=== PATIENT | female | born 1995 | race Caucasian/White ===

== ENCOUNTER 2016-12-25 06:01 | Emergency (ER) | payer SELFPAY ==
[~2016-12-25] VITALS: Ht 162.6 cm; Wt 62.1 kg
[~2016-12-25 06:01] MED LIST: ANAPROX DS550 M1 PO; CIPRO500 MG PO; ENDOCET 5-3251 EACH PO; IBUPROFEN800 MG PO; Motrin PO; NORCO 5/3251 TABLET PO; OXYCODONE5 MG; PERCOCET 5/31 TABLET PO; PHENERGAN12.5 M1 PO; PRENATAL TABLE1 EAC3 PO; PRENATAL VITAM1 EAC3 PO; PRILOSEC20 MG; PROMETHAZINE HC25 M1 PO; Percocet 5/325,Endoc PO; VICODIN,LORT1 TABLET PO; ZOFRAN ODT4 MG PO; ZOFRAN4 MG
[2016-12-25 06:05] VITALS: BP 141/88
[2016-12-25] MEDS ORDERED: NAPROXEN500 MG PO (06:43)
== END 2016-12-25 07:07 | disposition home or self-care (01) ==
LOC: EME 06:01
PROC: 2W3CX1Z Immobilization of Right Lower Arm using Splint (ICD-10-PCS; principal; 2016-12-25)
DX: S62.344A Nondisplaced fracture of base of fourth metacarpal bone, right hand, initial encounter for closed fracture (principal); S60.221A Contusion of right hand, initial encounter; W22.8XXA Striking against or struck by other objects, initial encounter; F17.200 Nicotine dependence, unspecified, uncomplicated
CPT/HCPCS: 73130; 99281; 99284; J1885; J3010

== ENCOUNTER 2017-08-06 11:27 | Observation (INO) | payer SELFPAY ==
[~2017-08-06] VITALS: Ht 162.6 cm; Wt 52.7 kg
[~2017-08-06 11:27] MED LIST changes: +NAPROXEN500 MG PO
[2017-08-06 13:12] LABS: HEMATOCRIT 35.9 % (36.0-46.0); HEMOGLOBIN 12.7 G/DL (11.9-15.5); MCH 29.3 PG (29.0-34.0); MCHC 35.4 G/DL (30.0-36.0); MCV 82.7 FL (83-99); PLATELET COUNT 319 K/uL (156-360); RBC DIS.WIDTH-CV 12.6 % (11.8-14.6); RBC DIS.WIDTH-SD 38.3 % (39-53); RED BLOOD COUNT 4.34 M/uL (3.80-5.20); WHITE BLOOD COUNT 10.8 K/uL (4.1-10.2)
[2017-08-06 13:21] LABS: ALBUMIN 3.7 g/dL (3.2-4.8); CHLORIDE 107 mEq/L (99-109); POTASSIUM 3.7 mEq/L (3.7-5.4); SODIUM 140 mEq/L (136-147)
[2017-08-06 13:23] LABS: GLUCOSE 102 mg/dL (70-99); TOTAL PROTEIN 6.4 g/dL (6.4-8.3)
[2017-08-06 13:25] LABS: TOTAL BILIRUBIN 0.5 mg/dL (0.0-1.0)
[2017-08-06 13:27] LABS: ALKALINE PHOSPHATASE 82 IU/L (3-129); CREATININE 0.6 mg/dL (0.6-1.3); GFR ESTIMATE (CALCULATED) > 59 mL/min/
[2017-08-06 13:28] LABS: UREA NITROGEN (BUN) 11 mg/dL (9-23)
[2017-08-06 13:29] LABS: AST (GOT) 15 IU/L (2-34)
[2017-08-06 13:30] LABS: ALT (GPT) 13 IU/L (3-49); LIPASE 24 U/L (1.0-51.0)
[2017-08-06 15:19] VITALS: BP 114/58
[2017-08-06 17:43] VITALS: BP 114/56
[2017-08-06 19:42] VITALS: BP 149/63
[2017-08-06 19:45] VITALS: BP 143/63
[2017-08-06] MEDS ORDERED: PRENATAL GUMMI1 EACH PO (19:54)
[2017-08-06 20:24] LABS: APPEARANCE CLEAR ((CLEAR)); BILIRUBIN NEGATIVE; BLOOD NEGATIVE; COLOR YELLOW ((YELLOW)); GLUCOSE (STRIP) NEGATIVE; KETONES 80; LEUKOCYTES NEGATIVE; NITRITE NEGATIVE; PROTEIN (STRIP) NEGATIVE; SPECIFIC GRAVITY 1.024 (1.000-1.030); UCUL ADDED? NO; UROBILINOGEN 0.2 MG/DL (0.2-1.0)
[2017-08-06 20:39] LABS: AMPHETAMINE NEGATIVE (500 ng/mL); BARBITURATES NEGATIVE (200 ng/mL); BENZODIAZEPINES NEGATIVE (150 ng/mL); BUPRENORPHINE NEGATIVE (10 ng/mL); COCAINE NEGATIVE (150 ng/mL); METHADONE NEGATIVE (200 ng/mL); METHAMPHETAMINE NEGATIVE (500 ng/mL); OPIATES (MORPHINE) NEGATIVE (100 ng/mL); OXYCODONE PRESUMPTIVE POSITIVE (100 ng/mL); PHENCYCLIDINE NEGATIVE (25 ng/mL); PROPOXYPHENE NEGATIVE (300 ng/mL); THC CANNABINOIDS PRESUMPTIVE POSITIVE (50 ng/mL); TRICYCLIC ANTIDEPRESSANTS NEGATIVE (300 ng/mL)
== END 2017-08-06 20:10 | disposition home or self-care (01) ==
LOC: EME 11:27 → EDOF 14:58 → 2WEST 14:58 → EDOF 15:11 → CANRESERV 15:11 → ENRESERV 15:11 → 2WEST 15:30
PROVIDERS: Emergency Medicine; Obstetrics & Gynecology Gynecology
DX: O99.612 Diseases of the digestive system complicating pregnancy, second trimester (principal); K52.9 Noninfective gastroenteritis and colitis, unspecified; Z3A.20 20 weeks gestation of pregnancy; O34.219 Maternal care for unspecified type scar from previous cesarean delivery; O09.32 Supervision of pregnancy with insufficient antenatal care, second trimester
CPT/HCPCS: 80053; 81003; 83690; 84999; 85027; 87086; 87502; 99281; 99284; G0378; J2405; J3411; J3415; J7030; J7070

== ENCOUNTER 2018-02-03 07:48 | Inpatient (IN) | payer OTHER ==
[~2018-02-03] VITALS: Ht 165.1 cm; Wt 138.0 kg
[~2018-02-03 07:48] MED LIST changes: +PRENATAL GUMMI1 EACH PO
[2018-02-03 08:35] VITALS: BP 129/66
[2018-02-03 08:37] LABS: BASOPHIL (%) 0.4 % (0-1); BASOPHIL COUNT 0.1 K/uL (0-0.1); EOSINOPHIL (%) 1.6 % (0-5); EOSINOPHIL COUNT 0.2 K/uL (0-0.3); HEMATOCRIT 31.6 % (36.0-46.0); HEMOGLOBIN 10.7 G/DL (11.9-15.5); IMMATURE GRANULOCYTE (%) 0.4 % (0.0-0.7); LYMPHOCYTE (%) 13.1 % (15-42); LYMPHOCYTE COUNT 1.8 K/uL (1.0-2.8); MCH 27.2 PG (29.0-34.0); MCHC 33.9 G/DL (30.0-36.0); MCV 80.4 FL (83-99); MONOCYTE (%) 7.1 % (3-12); NEUTROPHIL (%) 77.4 % (45-76); NEUTROPHIL COUNT 10.9 K/uL (1.8-6.4); PLATELET COUNT 254 K/uL (156-360); RBC DIS.WIDTH-CV 14.6 % (11.8-14.6); RBC DIS.WIDTH-SD 42.5 % (39-53); RED BLOOD COUNT 3.93 M/uL (3.80-5.20)
[2018-02-03 09:17] LABS: PTT 23.9 SEC (25-37)
[2018-02-03 09:19] LABS: ALBUMIN 3.2 g/dL (3.2-4.8); CHLORIDE 104 mEq/L (99-109); POTASSIUM 4.1 mEq/L (3.7-5.4); SODIUM 136 mEq/L (136-147)
[2018-02-03 09:22] LABS: GLUCOSE 86 mg/dL (70-99); TOTAL PROTEIN 5.7 g/dL (6.4-8.3)
[2018-02-03 09:24] LABS: TOTAL BILIRUBIN 0.7 mg/dL (0.0-1.0)
[2018-02-03 09:25] LABS: ALKALINE PHOSPHATASE 203 IU/L (3-129); CREATININE 0.6 mg/dL (0.6-1.3); GFR ESTIMATE (CALCULATED) > 59 mL/min/
[2018-02-03 09:26] LABS: UREA NITROGEN (BUN) 8 mg/dL (9-23)
[2018-02-03 09:27] LABS: AST (GOT) 16 IU/L (2-34)
[2018-02-03 09:28] LABS: ALT (GPT) 8 IU/L (3-49)
[2018-02-03 11:25] VITALS: BP 119/63
[2018-02-03 13:03] LABS: AMPHETAMINE NEGATIVE (500 ng/mL); BARBITURATES NEGATIVE (200 ng/mL); BENZODIAZEPINES NEGATIVE (150 ng/mL); BUPRENORPHINE NEGATIVE (10 ng/mL); COCAINE NEGATIVE (150 ng/mL); METHADONE NEGATIVE (200 ng/mL); METHAMPHETAMINE NEGATIVE (500 ng/mL); OPIATES (MORPHINE) NEGATIVE (100 ng/mL); OXYCODONE PRESUMPTIVE POSITIVE (100 ng/mL); PHENCYCLIDINE NEGATIVE (25 ng/mL); PROPOXYPHENE NEGATIVE (300 ng/mL); THC CANNABINOIDS NEGATIVE (50 ng/mL); TRICYCLIC ANTIDEPRESSANTS NEGATIVE (300 ng/mL)
[2018-02-03 14:43] VITALS: BP 132/74
[2018-02-03 15:45] VITALS: BP 131/61
[2018-02-03 17:57] VITALS: BP 122/58
[2018-02-03 22:17] VITALS: BP 139/74
[2018-02-04 05:41] LABS: BASOPHIL (%) 0.4 % (0-1); EOSINOPHIL (%) 0.5 % (0-5); EOSINOPHIL COUNT 0.1 K/uL (0-0.3); HEMATOCRIT 30.6 % (36.0-46.0); HEMOGLOBIN 10.4 G/DL (11.9-15.5); IMMATURE GRANULOCYTE (%) 0.4 % (0.0-0.7); LYMPHOCYTE (%) 17.7 % (15-42); MCH 27.8 PG (29.0-34.0); MCV 81.8 FL (83-99); MONOCYTE (%) 9.9 % (3-12); MONOCYTE COUNT 1.1 K/uL (0-0.8); NEUTROPHIL (%) 71.1 % (45-76); PLATELET COUNT 293 K/uL (156-360); RBC DIS.WIDTH-CV 14.6 % (11.8-14.6); RBC DIS.WIDTH-SD 43.3 % (39-53); RED BLOOD COUNT 3.74 M/uL (3.80-5.20); WHITE BLOOD COUNT 11.3 K/uL (4.1-10.2)
[2018-02-04 06:13] LABS: ANTI-HIV (AIDS STAT TEST) NONREACTIVE
[2018-02-04 10:58] LABS: HIV-1/2 AB/AG COMBO Nonreactive
[2018-02-04 11:03] LABS: HEPATITIS B SURFACE ANTIGEN Nonreactive
[2018-02-04 11:04] LABS: HEPATITIS C ANTIBODY Nonreactive
[2018-02-04 11:05] LABS: ANTI-HEPATITIS A VIRUS (IGM) Nonreactive; ANTI-HEPATITIS B CORE (IGM) Nonreactive
[2018-02-04] MEDS ORDERED: IBUPROFEN800 MG PO (20:45)
[2018-02-04] MEDS ORDERED: ENDOCET 5-3251 EACH PO (20:45)
[2018-02-06 09:56] LABS: TREPONEMA ANTIBODY NEGATIVE (NEGATIVE)
== END 2018-02-04 22:00 | disposition home or self-care (01) | DRG 765 ==
LOC: 2WEST 07:48 → 2SOUTH 12:04 → 2WEST 02-04 22:00
PROVIDERS: Obstetrics & Gynecology Obstetrics
DX: O34.211 Maternal care for low transverse scar from previous cesarean delivery (principal); O99.324 Drug use complicating childbirth; F11.10 Opioid abuse, uncomplicated; Z30.2 Encounter for sterilization; Z3A.39 39 weeks gestation of pregnancy; Z88.1 Allergy status to other antibiotic agents; O99.334 Smoking (tobacco) complicating childbirth; F17.200 Nicotine dependence, unspecified, uncomplicated; O99.62 Diseases of the digestive system complicating childbirth; K44.9 Diaphragmatic hernia without obstruction or gangrene; Z37.0 Single live birth; Z86.32 Personal history of gestational diabetes
CPT/HCPCS: 80053; 80074; 85025; 85610; 85730; 86762; 86780; 86850; 86870; 86900; 86901; 86920; 87389; 88302; J0690; J1100; J1885; J2274; J2405; J3010; J7120; S0020